=== PATIENT | female | born 1940 | race Caucasian/White ===

== ENCOUNTER → 2023-08-27 11:02 | Outpatient (REF) | payer OTHER, SELFPAY | LOC: HWRCS 11:02 | PROVIDERS: ATTENDING PHYSICIAN Internal Medicine Interventional Cardiology; FAMILY PHYSICIAN Internal Medicine | DX: I48.91 Unspecified atrial fibrillation (principal) | CPT/HCPCS: 93306 ==

== ENCOUNTER → 2023-09-10 08:20 | Outpatient (REF) | payer OTHER, SELFPAY ==
[2023-09-10 09:47] LABS: % Basophils 0.8 % (0-2); % Eosinophils 2.2 % (0-6); % Immature Granulocytes 0.3 % (0-0.5); % Lymphocytes 22.1 % (20.5-51.1); % Monocytes 10.9 % (1.7-9.3); % Neutrophils 63.7 % (42.2-75.2); Absolute Basophils 0.1 10^3/uL (0-0.2); Absolute Eosinophils 0.2 10^3/uL (0-0.7); Absolute Lymphocytes 1.6 10^3/uL (1.2-3.4); Absolute Monocytes 0.8 10^3/uL (0.1-0.6); Absolute Neutrophils 4.6 10^3/uL (1.4-6.5); Hematocrit 40.8 % (37.0-47.0); Hemoglobin 13.4 g/dL (12.0-16.0); Mean Corp Hgb Conc. 32.8 g/dL (33.0-37.0); Mean Corpuscular Hgb 26.9 pg (27.0-31.0); Mean Corpuscular Volume 81.9 fL (81.0-99.0); Nucleated Red Blood Cells % 0 %; Platelet Count 316 10^3/uL (130-400); Red Blood Cell Count 4.98 10^6/uL (4.20-5.40); Red Cell Dist. Width 13.8 % (11.5-14.5); White Blood Cell Count 7.2 10^3/uL (4.8-10.8)
[2023-09-10 11:24] LABS: Vitamin D, 25-OH*** 42.6 ng/mL (30-80)
[2023-09-10 12:47] LABS: ALT (SGPT) 12 U/L (0-35); AST (SGOT) 27 U/L (14-36); Albumin 4.4 g/dl (3.5-5.0); Alkaline Phosphatase 77 U/L (38-126); Blood Urea Nitrogen 17 mg/dl (7-17); Calcium 10.2 mg/dl (8.4-10.2); Carbon Dioxide 27 mmol/L (22-30); Chloride 103 mmol/L (98-107); Glucose 93 mg/dl (70-99); HDL Cholesterol 58 mg/dl; LDL Cholesterol, Calculated 73 mg/dl; Potassium 4.7 mmol/L (3.5-5.1); Sodium 140 mmol/L (135-145); Total Bilirubin 0.8 mg/dl (0.2-1.3); Total Cholesterol 150 mg/dl (50-199); Total Protein 7.3 g/dl (6.3-8.2); Triglyceride 99 mg/dl (10-149); Very Low Density Lipoprotein 19 mg/dl (0-30); eGFR > 60.00
== END ==
LOC: HWLAB 08:20
PROVIDERS: ATTENDING PHYSICIAN Internal Medicine; REFERRING PHYSICIAN Internal Medicine Interventional Cardiology
DX: I10 Essential (primary) hypertension (principal); E78.00 Pure hypercholesterolemia, unspecified; E55.9 Vitamin D deficiency, unspecified
CPT/HCPCS: 36415; 80053; 80061; 82306; 85025

== ENCOUNTER → 2023-11-27 09:05 | Outpatient (REF) | payer OTHER, SELFPAY | LOC: MRI 3T 09:05 | PROVIDERS: ATTENDING PHYSICIAN Pain Medicine Interventional Pain Medicine; FAMILY PHYSICIAN Internal Medicine | DX: M54.16 Radiculopathy, lumbar region (principal) | CPT/HCPCS: 72148 ==

== ENCOUNTER → 2024-07-24 09:12 | Outpatient (REF) | payer OTHER, SELFPAY ==
[2024-07-24 12:18] LABS: % Basophils 1.1 % (0-2); % Eosinophils 2.3 % (0-6); % Immature Granulocytes 0.5 % (0-0.5); % Monocytes 11.5 % (1.7-9.3); % Neutrophils 63.6 % (42.2-75.2); Absolute Basophils 0.1 10^3/uL (0-0.2); Absolute Eosinophils 0.1 10^3/uL (0-0.7); Absolute Lymphocytes 1.3 10^3/uL (1.2-3.4); Absolute Monocytes 0.7 10^3/uL (0.1-0.6); Absolute Neutrophils 3.9 10^3/uL (1.4-6.5); Hematocrit 41.4 % (37.0-47.0); Hemoglobin 13.4 g/dL (12.0-16.0); Mean Corp Hgb Conc. 32.4 g/dL (33.0-37.0); Mean Corpuscular Volume 83.5 fL (81.0-99.0); Mean Platelet Volume 9.9 fL (7.4-10.4); Nucleated Red Blood Cells % 0 %; Platelet Count 293 10^3/uL (130-400); Red Blood Cell Count 4.96 10^6/uL (4.20-5.40); Red Cell Dist. Width 13.8 % (11.5-14.5); White Blood Cell Count 6.2 10^3/uL (4.8-10.8)
[2024-07-24 12:49] LABS: INR 1.35
[2024-07-24 12:50] LABS: APTT 33.2 Sec (23.4-35.0)
[2024-07-24 12:51] LABS: ALT (SGPT) 13 U/L (0-35); AST (SGOT) 24 U/L (14-36); Albumin 4.8 g/dl (3.5-5.0); Alkaline Phosphatase 92 U/L (38-126); Blood Urea Nitrogen 16 mg/dl (7-17); Calcium 10.4 mg/dl (8.4-10.2); Carbon Dioxide 28 mmol/L (22-30); Chloride 104 mmol/L (98-107); Glucose 99 mg/dl (70-99); HDL Cholesterol 67 mg/dl; LDL Cholesterol, Calculated 58 mg/dl; Potassium 4.2 mmol/L (3.5-5.1); Sodium 142 mmol/L (135-145); Total Cholesterol 147 mg/dl (50-199); Total Protein 7.7 g/dl (6.3-8.2); Triglyceride 113 mg/dl (10-149); Very Low Density Lipoprotein 22 mg/dl (0-30); eGFR > 60.00
[2024-07-24 13:02] LABS: Vitamin D, 25-OH*** 54.1 ng/mL (30-80)
== END ==
LOC: HWLAB 09:12
PROVIDERS: ATTENDING PHYSICIAN Internal Medicine Cardiovascular Disease; REFERRING PHYSICIAN Internal Medicine
DX: E55.9 Vitamin D deficiency, unspecified (principal); E78.00 Pure hypercholesterolemia, unspecified; I48.91 Unspecified atrial fibrillation; E78.2 Mixed hyperlipidemia; R00.1 Bradycardia, unspecified
CPT/HCPCS: 36415; 80053; 80061; 82306; 85025; 85610; 85730

== ENCOUNTER 2024-08-02 12:14 | Day surgery (SDC) | payer OTHER, SELFPAY ==
[2024-08-02] VITALS (7 sets, daily range): BP systolic 131–149; BP diastolic 79–115; BMI 26.8; BMI 26.9
--- NOTE | 2024-08-02 18:36 | ITS.CL.PACE ---
Electrical & Instrumentation Supervisor - Pacemaker Implant
Pacemaker Implant
Procedure Report:
Primary Care Doctor: Dr Iglesia Virgen
Primary Tile Mason: Dr Wan Max
Procedure Date: 08/02/2024
Name of procedure:
1. Placement of a single-chamber pacemaker with left bundle area pacing lead for conduction system pacing
2. Subclavian venography
History:
1. Patient is a pleasant 83-year-old female with a past medical history significant for Raynaud's, hypertension, mixed hyperlipidemia, permanent atrial fibrillation with slow ventricular response, and symptomatic bradycardia with frequent AV block
and pauses of 3.5 seconds.
2. Please refer to H&P for complete history.
Indication:
Symptomatic irreversible bradycardia in the setting of permanent AF
Frequent pauses 3.5 seconds
Methods:
After informed consent was obtained, the patient was brought to the EP laboratory in a postabsorptive, nonsedated state. Peripheral IV access was established. Prophylactic antibiotics were administered prior to incision. Continuous ECG, blood
pressure, and pulse oximetry were initiated. Cardioversion patch electrodes were placed on the patient's chest and back. A grounding patch was applied to the skin. Sedation was administered by anesthesia services.
In order to define the extrathoracic portion of the subclavian vein and exclude significant venous obstruction or anomalous anatomy, subclavian venography was performed prior to the procedure. Using the patient's left peripheral IV, contrast was
injected and images were recorded. The left subclavian vein and SVC were found to be widely patent.
The left chest was prepared and draped in a sterile fashion. A time-out was performed. Local anesthesia was injected in the subcutaneous tissue in the infraclavicular area. An incision was made medial to the deltopectoral groove. The subcutaneous
tissue was dissected the level of the prepectoral fascia. A subcutaneous pocket was created. Under fluoroscopic guidance and with the assistance of the images from the venogram, venipuncture was made using micropuncture and modified Seldinger
technique. This was performed in the extrathoracic portion of the subclavian vein. Guidewire was passed and a peel-away sheath were placed, and used to advance lead into the circulation.
Fluoroscopy was used to determine likely anatomic site for left bundle branch pacing. The Medtronic C315 sheath was used to deliver the Medtronic 3830 Selectsecure pacing lead with the helix exposed just exposed from the sheath tip during continuous
monitoring when pacemapping the septum during gentle clockwise rotation to obtain a paced QRS morphology of a W pattern in lead V1. Once the suspected optimal site was identified, lead deployment was performed with several rapid rotations as paced
QRS morphology was intermittently monitored until a paced QRS complex in lead V1 demonstrated development of an R wave (qR or rSR). The unipolar pacing impedance drop by greater than 400 ohms suggesting perforation into the left ventricular cavity
and the lead was carefully withdrawn and repositioned. Unipolar pacing impedance dropped by approximately 100-200 ohms suggesting it had reached the left ventricular subendocardial. Stable VEgm injury current is present throughout lead position and
at end of case. Final unipolar pacing impedance is 920 Ohms. Unipolar pacing threshold is stable at 1.0 V @ 0.4 ms. The patient had pre-existing narrow QRS. Final conduction system paced QRS complex duration is 111 ms, LVAT is 42 ms, and peak V5 ->
peak V1 timing is 78 ms. The C315 sheath was slit under fluoroscopy ensuring lead position and stability. The sheath was split and the lead was secured to the fascia with Ethibond ties.
The pocket was flushed with antibiotic solution and hemostasis was assured. The generator was connected to the leads and placed inside the pocket. The device was sutured to the fascia. Antibiotic envelope was used. Surgiflo was applied. The wound
was closed with 3 running layers of absorbable suture, and steri-strips were applied. Dressing applied over steri-strips in standard fashion.
Following the procedure, the patient was taken to the recovery area in stable condition. A chest x-ray to be obtained post procedure as routine.
Lead parameters and device programming:
- RV Lead (Medtronic, Model 3830, # [id number]): Sensing 5.0 mV, Pacing threshold 0.5 V at 0.4 ms, Imp 920 ohm
- Device: Medtronic, Model W1 SR 01 pacemaker (# [id number]), programmed VVIR 70-120 ppm
Conclusions:
1. Successful placement of a single-chamber pacemaker with conduction system pacing (LBBAP)
2. Subclavian venography
Recommendations:
- Admit
- Chest x-ray tonight, [facility] in AM.
- IV antibiotics while the patient is admitted.
- OK to resume home medications as indicated
- Pressure dressing to be removed in AM, aquacell to remain until wound check
- Follow-up will be arranged in the office in 7-10 days post-discharge for incision check
- OK to resume OAC 5/2 AM if patient and site stable
Griffin Garcia, , FACC, [facility]
Clinical Cardiac Manager Fine
cc: Dr Iglesia Virgen, Dr Wan Max
[2024-08-02] MEDS: LIPITOR 10 MG PO (20:41)
--- NOTE | 2024-08-02 23:32 | PTCARENOTE ---
Addendum entered by Alecia Newsome RN 08/02/24 23:35:
pt at CXray
Original Note:
18:50 Pt admitted to room 2256 post left chest PMM. Pt AAOx3 VSS. Pt denies pain or any other discomfort. Pt oriented to room, call blanco in place.
[2024-08-03 04:34] VITALS: BP 128/88
[2024-08-03 05:09] LABS: Hematocrit 37.3 % (37.0-47.0); Hemoglobin 12.4 g/dL (12.0-16.0); Mean Corp Hgb Conc. 33.2 g/dL (33.0-37.0); Mean Corpuscular Hgb 27.4 pg (27.0-31.0); Mean Corpuscular Volume 82.3 fL (81.0-99.0); Mean Platelet Volume 9.8 fL (7.4-10.4); Platelet Count 251 10^3/uL (130-400); Red Blood Cell Count 4.53 10^6/uL (4.20-5.40); Red Cell Dist. Width 13.8 % (11.5-14.5); White Blood Cell Count 6.6 10^3/uL (4.8-10.8)
[2024-08-03 05:34] LABS: Blood Urea Nitrogen 16 mg/dl (7-17); Calcium 9.2 mg/dl (8.4-10.2); Carbon Dioxide 25 mmol/L (22-30); Chloride 106 mmol/L (98-107); Estimated Creatinine Clearance 59 ml/min; Glucose 85 mg/dl (70-99); Magnesium 1.8 mg/dl (1.6-2.3); Potassium 4.1 mmol/L (3.5-5.1); Sodium 140 mmol/L (135-145); eGFR > 60.00
[2024-08-03 07:18] VITALS: BP 116/103
[2024-08-03 07:19] VITALS: BP 125/94
[2024-08-03] MEDS: COZAAR 100 MG PO (08:58)
[2024-08-03] MEDS: ORETIC 25 MG PO (08:59)
--- NOTE | 2024-08-03 09:36 | CM ---
Reviewed chart. Met with Mrs. Person to review discharge plans. She states prior to admission she resides with her spouse in a two story home without any steps to enter. She resides in a [place] community. She states she has been there for five
years. She states prior to admission she was independent with ambulation and adls. She states she sometimes uses a walker when needed. She states she has a rolling walker at home. She states she has a prescription plan and uses [facility]. The
discharge plan is to return home with her spouse when medically stable.
--- NOTE | 2024-08-03 10:54 | W.PN.CARDCBS ---
Addendum entered and electronically signed by Reji Rabago MD 08/03/24 13:14:
Patient seen and examined
Agree with TRANSMITTER CHIEF note assessment
Agree with TRANSMITTER CHIEF plan
Appropriate ventricular pacing on telemetry
����Physical Exam
���������������������General:��no apparent distress, not acutely ill
���������������������������Neck:��supple. no meningeal signs. normal psoterior pharynx
������������������������
���������������������������Heart:��s1/s2 regular rate and rhythm, no murmur. equal radial pulses.
��������������������������Lungs: ��no acute respiratory distress. clear bilaterally
����������������������Abdomen:�normal bowel sounds. not tender. no CVAT
��������������������������Neuro:��alert and oriented. no focal neurological deficits
������������������������������Skin: ��no rash
�����������������������Psychiatric:�well kept. interactive and cooperative
�����������������������Extremities:��no edema. no calf tenderness. negative homans. good distal pulses
Impression:
Symptomatic bradycardia
post SC PPM 08/02/24
Persistent AFib with SVR
HTN
HLD
PVC's
Raynauds syndrome
Plan:
post device site stable
Inspected telemetry and chest x-ray
Hold Eliquis resume Wednesday
continue losartan and HCTZ for HTN
Activity restrictions reviewed
Incision check 1 week
home today
Original Note:
Today's Communication / Plan
-
post SC PPM stable for d/c home
Impression / Plan
-
PCP: Iglesia Virgen MD
CDY: Wan Max MD
Impression:
Symptomatic bradycardia
post SC PPM 08/02/24
Persistent AFib with SVR
HTN
HLD
PVC's
Raynauds syndrome
Plan:
post device site stable
tele Vpaced
CXR no PTX
Hold Eliquis resume Wednesday
continue losartan and HCTZ for HTN
Activity restrictions reviewed
Incision check 1 week
home today
Progress Note - Bee Keeper
Subjective
Date of Service: August 03, 2024
denies cp, sob
Objective
Labs:
08/03/24 04:43
08/03/24 04:43
Labs
Hgb 12.4 g/dL (12.0-16.0) 08/03/24 04:43
Hct 37.3 % (37.0-47.0) 08/03/24 04:43
Plt Count 251 10^3/uL (130-400) 08/03/24 04:43
Sodium 140 mmol/L (135-145) 08/03/24 04:43
Potassium 4.1 mmol/L (3.5-5.1) 08/03/24 04:43
BUN 16 mg/dl (7-17) 08/03/24 04:43
Creatinine 0.6 mg/dL (0.6-1.0) 08/03/24 04:43
Glucose 85 mg/dl (70-99) 08/03/24 04:43
Vital Signs and I&O:
Vital Signs
Temp Pulse Resp BP Pulse Ox
97.4 F 79 20 125/94 97
08/03/24 07:18 08/03/24 09:15 08/03/24 07:18 08/03/24 08:58 08/03/24 07:18
Vital Signs
Temp Pulse Resp BP Pulse Ox
97.4 F 79 20 125/94 97
08/03/24 07:18 08/03/24 09:15 08/03/24 07:18 08/03/24 08:58 08/03/24 07:18
Intake & Output
08/01/24 08/02/24 08/03/24 08/04/24
06:59 06:59 06:59 06:59
Intake Total 400 / 400
Balance 400 / 400
Physical Exam
Physical Exam
NAD, AOX3
S1, S2, RRR
CTAB, non labored, no wheeze
SNTND Bsx4
L CW Dressing c/d/i no HT, pressure dressing removed
[2024-08-03 11:10] VITALS: BP 130/95
--- NOTE | 2024-08-03 13:54 | W.DS.TRANS ---
DC Summary - City Clerk
-
Discharge Instructions:
Sleep Apnea Risk Intermediate
Discharge Diagnosis/Procedures Pacemaker implant
Diet Low Cholesterol
Driving Restrictions No driving for 1 week
Bathing Restrictions OK to Shower
Instructions:
Stand-Alone Forms: DC Inst - Implanted Device
Changes to Home Medications: No
Discharge Medications:
DC Medications w/original date entered in [employer]
apixaban 5 mg tablet (Eliquis) 5 mg PO BID 08/02/24
cholecalciferol (vitamin D3) 25 mcg (1,000 unit) tablet (Vitamin D3) 25 mcg PO DAILY 08/02/24
hydrochlorothiazide 25 mg tablet 25 mg PO DAILY 08/02/24
losartan 100 mg tablet 100 mg PO DAILY 08/02/24
multivitamin 1 tab PO DAILY 08/02/24
simvastatin 10 mg tablet 10 mg PO QPM 08/02/24
Home Medication Changes
Pending Results: No
== END 2024-08-03 11:40 | disposition home or self-care (01) ==
LOC: CATH 12:14
PROVIDERS: Nurse Practitioner Adult Health; ATTENDING PHYSICIAN Internal Medicine Cardiovascular Disease; FAMILY PHYSICIAN Internal Medicine; OTHER PHYSICIAN Internal Medicine Interventional Cardiology
DX: I48.21 Permanent atrial fibrillation (principal); R00.1 Bradycardia, unspecified; E78.2 Mixed hyperlipidemia; I73.00 Raynaud's syndrome without gangrene; I50.9 Heart failure, unspecified; I11.0 Hypertensive heart disease with heart failure; I49.3 Ventricular premature depolarization; I44.30 Unspecified atrioventricular block
CPT/HCPCS: 33207; 71045; 80048; 83735; 85027; 93005; C1769; C1786; C1887; C1892; C1898; Q9967